=== PATIENT | male | born 1960 | race African-American/Black ===

== ENCOUNTER 2022-08-19 12:19 | Emergency (ER) | payer MEDICAID, OTHER ==
[~2022-08-19] VITALS: Ht 177.8 cm; Wt 70.0 kg
[2022-08-19] MEDS ORDERED: ONDANSETRON HCL 4MG/2ML INJ IV STA (12:53)
[2022-08-19] MEDS ORDERED: MORPHINE SULFATE 4 MG/ML CPJ (NOT FOR IM USE) IV STA (12:53)
[2022-08-19] MEDS ORDERED: SODIUM CHLORIDE 0.9% 1,000 ML IV ONE (13:00)
[2022-08-19 16:21] LABS: BASOPHILS % 0.9 % (0.0-2.0); EOSINOPHILS % 3.3 % (0.0-5.0); HEMATOCRIT. 33.7 % (42.0-52.0); HEMOGLOBIN. 11.1 g/dL (14.0-18.0); LYMPHOCYTES % 20.4 % (20.0-50.0); MEAN CORPUSCULAR HEMOGLOBIN 27.9 pg (28.0-32.0); MEAN CORPUSCULAR VOLUME 84.6 fL (80.0-94.0); MEAN PLATELET VOLUME 7.3 fl (7.4-10.4); MONOCYTES % 9.6 % (2.0-8.0); NEUTROPHILS % 65.8 % (40.0-76.0); PLATELET 239 x1000/uL (130-400); RED BLOOD CELL COUNT 3.98 mill/uL (4.7-6.1); RED CELL DISTRIBUTION WIDTH 14.7 % (11.6-14.6)
[2022-08-19 16:30] LABS: CHLORIDE 109 mEq/L (98-107)
[2022-08-19 16:32] LABS: D-DIMER 0.93 mg/L FEU (<0.50); INR 1.1; PARTIAL THROMBOPLASTIN TIME 33.3 sec (23.4-31.0); PROTHROMBIN TIME 11.3 sec (9.6-11.0)
[2022-08-19] MEDS ORDERED: AZITHROMYCIN 500MG/250ML 250 ML IV ONE (17:45)
[2022-08-19] MEDS ORDERED: CEFTRIAXONE 1 G PREMIX 50 ML IV ONE (17:45)
[2022-08-19] MEDS ORDERED: SODIUM CHLORIDE 0.9% 1000ML BAG (SEPSIS BOLUS) IV ONE (17:45)
[2022-08-19 21:03] LABS: CLARITY URINE CLEAR (CLEAR); COLOR URINE YELLOW (YELLOW); KETONES URINE NEGATIVE (NEGATIVE); LEUKOCYTE ESTERASE URINE NEGATIVE (NEGATIVE); NITRITE URINE NEGATIVE (NEGATIVE); OCCULT BLOOD URINE NEGATIVE (NEGATIVE); PH URINE 6.5 (4.5-8.0); PROTEIN URINE NEGATIVE (NEGATIVE); SPECIFIC GRAVITY URINE 1.017 (1.005-1.030)
[2022-08-19] MEDS ORDERED: IOHEXOL-300 100 ML BOTTLE ONE (22:51)
[2022-08-20 16:12] VITALS: BP 141/81
== END 2022-08-20 17:41 | disposition short-term general hospital (02) ==
LOC: ER 12:19
DX: S02.69XA Fracture of mandible of other specified site, initial encounter for closed fracture (principal); R55 Syncope and collapse; R07.89 Other chest pain; M25.561 Pain in right knee; R03.0 Elevated blood-pressure reading, without diagnosis of hypertension; W18.39XA Other fall on same level, initial encounter; Y93.89 Activity, other specified; Y92.018 Other place in single-family (private) house as the place of occurrence of the external cause; Z20.822 Contact with and (suspected) exposure to COVID-19
CPT/HCPCS: 36415; 70450; 70486; 71045; 71275; 73560; 80053; 81003; 83605; 83880; 84484; 85025; 85379; 85610; 85730; 87040; 87086; 87426; 93005; 96361; 96365; 96375; 99285; C9803; J0456; J0696; J2270; J2405; J7030; Q9967; Z7610

== ENCOUNTER 2022-08-24 11:35 | Inpatient (IN) | payer MEDICAID ==
[~2022-08-24] VITALS: Ht 185.4 cm; Wt 75.4 kg
[2022-08-24] MEDS ORDERED: ASPIRIN 81MG TABLET PO ONE (12:15)
[2022-08-24] MEDS ORDERED: SODIUM CHLORIDE 0.9% 1,000 ML IV ONE (13:30)
[2022-08-24 13:46] LABS: BASOPHILS % 1.1 % (0.0-2.0); EOSINOPHILS % 1.4 % (0.0-5.0); HEMATOCRIT. 39.4 % (42.0-52.0); HEMOGLOBIN. 12.9 g/dL (14.0-18.0); MEAN CORPUSCULAR HEMOGLOBIN 27.7 pg (28.0-32.0); MEAN CORPUSCULAR VOLUME 84.5 fL (80.0-94.0); MEAN PLATELET VOLUME 7.5 fl (7.4-10.4); MONOCYTES % 9.5 % (2.0-8.0); PLATELET 305 x1000/uL (130-400); RED BLOOD CELL COUNT 4.66 mill/uL (4.7-6.1); RED CELL DISTRIBUTION WIDTH 15.1 % (11.6-14.6)
[2022-08-24 13:54] LABS: CHLORIDE 102 mEq/L (98-107)
[2022-08-24 23:18] VITALS: BP 106/57
[2022-08-24] MEDS ORDERED: ATOR10TA PO (23:31)
[2022-08-24] MEDS ORDERED: FLUO10TA3 GT (23:31)
[2022-08-24] MEDS ORDERED: HYDR-4134 PO (23:31)
[2022-08-25] VITALS: BP 108/59
[2022-08-25] MEDS ORDERED: DOCUSATE SODIUM 250MG CAPSULE PO PRN (00:30)
[2022-08-25] MEDS ORDERED: HYDROCODONE/ACETAMINOPHEN 10/325MG TABLET PO PRN (00:30)
[2022-08-25 04:00] VITALS: BP 118/76
[2022-08-25 08:00] VITALS: BP 129/56
[2022-08-25] MEDS: ENOXAPARIN 40MG/0.4ML SYR SUBCUT SCH (08:03)
[2022-08-25] MEDS: FLUOXETINE HCL 10 MG CAPSULE PO SCH (08:03)
[2022-08-25] MEDS: ASPIRIN 81MG TABLET PO SCH (08:04)
[2022-08-25 12:00] VITALS: BP 122/80
[2022-08-25 15:54] VITALS: BP_SYST 115; BP_SYST 123; BP_SYST 127; BP_DIAS 67; BP_DIAS 80
[2022-08-25 20:00] VITALS: BP_SYST 114; BP_SYST 128; BP_SYST 129; BP_DIAS 72; BP_DIAS 86; BP_DIAS 88
[2022-08-25] MEDS ORDERED: ATORVASTATIN CALCIUM 40MG TABLET PO SCH (21:00)
[2022-08-25 22:33] LABS: CLARITY URINE CLEAR (CLEAR); COLOR URINE YELLOW (YELLOW); KETONES URINE NEGATIVE (NEGATIVE); LEUKOCYTE ESTERASE URINE NEGATIVE (NEGATIVE); NITRITE URINE NEGATIVE (NEGATIVE); OCCULT BLOOD URINE NEGATIVE (NEGATIVE); PH URINE 7.5 (4.5-8.0); PROTEIN URINE NEGATIVE (NEGATIVE); UROBILINOGEN URINE 0.2 E.U./dL (0.2-1.0)
[2022-08-25 22:44] LABS: *AMPHETAMINES SCREEN URINE NEGATIVE (NEGATIVE); *BARBITURATES SCREEN URINE NEGATIVE (NEGATIVE); *BENZODIAZEPINES SCREEN URINE NEGATIVE (NEGATIVE); *COCAINE SCREEN URINE PRESUMTIVE POSITIVE (NEGATIVE); CANNABINOID URINE SCREEN NEGATIVE (NEGATIVE); METHADONE URINE SCREEN NEGATIVE (NEGATIVE); OPIATES URINE SCREEN NEGATIVE (NEGATIVE); PHENCYCLIDINE URINE SCREEN NEGATIVE (NEGATIVE)
[2022-08-26 04:00] VITALS: BP 109/63
[2022-08-26 08:00] VITALS: BP 113/67
[2022-08-26] MEDS: FLUOXETINE HCL 10 MG CAPSULE PO SCH (08:31)
[2022-08-26] MEDS: ASPIRIN 81MG TABLET PO SCH (08:31)
[2022-08-26] MEDS: ENOXAPARIN 40MG/0.4ML SYR SUBCUT SCH (08:31)
[2022-08-26 10:45] LABS: BASOPHILS % 1.3 % (0.0-2.0); EOSINOPHILS % 2.9 % (0.0-5.0); HEMATOCRIT. 36.5 % (42.0-52.0); HEMOGLOBIN. 11.8 g/dL (14.0-18.0); LYMPHOCYTES % 25.7 % (20.0-50.0); MEAN CORPUSCULAR HEMOGLOBIN 27.3 pg (28.0-32.0); MEAN CORPUSCULAR VOLUME 84.2 fL (80.0-94.0); MEAN PLATELET VOLUME 7.5 fl (7.4-10.4); MONOCYTES % 11.5 % (2.0-8.0); NEUTROPHILS % 58.6 % (40.0-76.0); PLATELET 292 x1000/uL (130-400); RED BLOOD CELL COUNT 4.33 mill/uL (4.7-6.1); RED CELL DISTRIBUTION WIDTH 14.8 % (11.6-14.6)
[2022-08-26 11:24] LABS: CHLORIDE 106 mEq/L (98-107)
[2022-08-26 12:00] VITALS: BP 156/85
== END 2022-08-26 15:22 | disposition home or self-care (01) | DRG 48 ==
LOC: ER 11:35 → EDBEDREQ 12:43 → MICUSO 15:17 → EDBEDREQ 15:23 → EDBEDREQTM 15:23 → 7EST 21:03
PROVIDERS: ADMIT Internal Medicine; ATTEND Internal Medicine
DX: G90.8 Other disorders of autonomic nervous system (principal); E78.5 Hyperlipidemia, unspecified; I10 Essential (primary) hypertension; R07.89 Other chest pain; J44.9 Chronic obstructive pulmonary disease, unspecified; F14.90 Cocaine use, unspecified, uncomplicated; F17.200 Nicotine dependence, unspecified, uncomplicated
CPT/HCPCS: 36415; 70551; 71045; 73560; 80048; 80053; 80305; 81003; 83735; 83880; 84484; 85025; 93005; 93971; 99285; J1650; J7030

== ENCOUNTER 2022-10-14 19:14 | Emergency (ER) | payer MEDICAID ==
[~2022-10-14] VITALS: Ht 177.8 cm; Wt 77.0 kg
[~2022-10-14 19:14] MED LIST: ATOR10TA PO; FLUO10TA53 GT
[2022-10-14 19:15] VITALS: BP 130/74
== END 2022-10-14 20:00 | disposition home or self-care (01) ==
LOC: ER 19:14
DX: R07.89 Other chest pain (principal); I10 Essential (primary) hypertension; I25.2 Old myocardial infarction
CPT/HCPCS: 93005; 99283